=== PATIENT | male | born 1990 | race Caucasian/White ===

== ENCOUNTER 2020-03-14 11:50 | Emergency (ER) | payer OTHER ==
[2020-03-14 11:54] VITALS: BP 116/70; PULSE 59; TEMP 97.4; BMI 31.1
[2020-03-14] MEDS ORDERED: CEPHALEXIN MONOHYDRATE 500 MG CAPSULE (UD) PO ONE (12:39)
[2020-03-14] MEDS ORDERED: DIPHTH,PERTUSS(ACELL),TET 0.5 ML DISP.SYRIN IM ONE ×2 (12:39→12:43)
[2020-03-14] MEDS ORDERED: IBUPROFEN 600 MG TABLET (FP) PO ONE ×2 (12:39→12:43)
[2020-03-14] MEDS ORDERED: CEPHALEXIN MONOHYDRATE 500 MG CAPSULE (UD) ONE (12:43)
--- NOTE | 2020-03-14 12:47 | PDOC ---
History of Present Illness - General Chief Complaint: Puncture Wound Stated Complaint: WOUND L FOOT Time Seen by Provider: 03/14/20 12:00 History Source: Patient Exam Limitations: No Limitations - History of Present Illness Initial Comments: 03/14/20 12:45 Patient is a 29-year-old male who presents to the ED with complaint of left foot pain and swelling after a nail fell onto the dorsum of his foot yesterday. The nail punctured his left foot and required him to pull it out on his own. He states the foot has become more swollen and more painful since. Is unknown when his last tetanus booster was. He denies any fevers or chills. He denies any drainage from the area. He has not taken anything for his symptoms. He denies any past medical history or allergies to medications. Past History - Medical History Allergies/Adverse Reactions: Allergies Allergy/AdvReac Type Severity Reaction Status Date / Time No Known Allergies Allergy Verified 03/14/20 11:54 Home Medications: Ambulatory Orders Cephalexin [Keflex] 500 mg PO TID #21 capsule 03/14/20 Ibuprofen [Motrin -] 600 mg PO TID PRN #21 tablet 03/14/20 COPD: No Other medical history: DENIES - Psycho-Social/Smoking History Smoking History: Never smoked Have you smoked in the past 12 months: No Information on smoking cessation initiated: No - Substance Abuse Hx (Audit-C & DAST Scrn) How often the patient has a drink containing alcohol: Never Score: In Men: 4 or > Positive; In Women: 3 or > Positive: 0 Screen Result (Pos requires Nsg. Audit-10AR): Negative In the last yr the pt used illegal drug/Rx for NonMed reason: No Score: Yes response is considered Positive: 0 Screen Result (Positive result requires Nsg. DAST-10): Negative Review of Systems - Review of Systems Comments:: 03/14/20 12:45 - Review of Systems Able to Perform ROS?: Yes Constitutional: No: Fever, Chills, Loss of Appetite, Night Sweats, Weakness HEENTM: No: Eye Pain, Vision changes, Ear Pain, Throat Pain, Throat Swelling, Mouth Pain, Difficulty Swallowing Respiratory: No: Cough, Shortness of Breath, Wheezing, Sputum Production Cardiac (ROS): No: Chest Pain, Chest Tightness, Palpitations, Irregular Heart Beat, Edema ABD/GI: No: Nausea, Vomiting, Abdominal Pain, Diarrhea : No Dysuria, No Hematuria, No Frequency, No Urgency Musculoskeletal: No: Muscle Pain, Back Pain, Joint Pain, Muscle Weakness, Neck Pain; positive: Puncture wound left foot Integumentary: No: Lesions, Rash Neurological: No: Headache, Numbness, Tingling, Weakness, Speech Difficulties *Physical Exam - Vital Signs Last Vital Signs Temp Pulse Resp BP Pulse Ox 97.4 F L 59 L 18 116/70 98 03/14/20 11:51 03/14/20 11:51 03/14/20 11:51 03/14/20 11:51 03/14/20 11:51 - Physical Exam 03/14/20 12:46 - Physical Exam General Appearance: Nourished, Appropriately Dressed, No Distress HEENT: EOMI, Normal Voice, Hearing Grossly Normal Neck: Supple, No Lymphadenopathy (R), No Lymphadenopathy (L), No Rigidity, No Decreased range of motion Respiratory/Chest: Lungs Clear, Normal Breath Sounds. No Respiratory Distress, No Accessory Muscle Use Cardiovascular: Regular Rhythm, Regular Rate, S1, S2 Musculoskeletal: Normal Inspection. No Decreased Range of Motion Extremity: Normal Capillary Refill, Normal Inspection; left dorsum foot on the medial aspect just distal to the ankle with a puncture wound with central scabbing appreciated. Moderate surrounding swelling and tenderness to palpation. No drainage. No erythema. No significant warmth to touch. No fluctuance. DP and PT pulses palpable. Sensation intact distally. Brisk capillary refill distally. Integumentary: Normal Color, Dry. No Rash Neurologic: financial systems analyst II-XII NML intact, Fully Oriented, Alert, Normal Mood/Affect, Normal Response ED Treatment Course - RADIOLOGY Radiology Studies Ordered: Category Date Time Status FOOT-LEFT [RAD] Stat Radiology 03/14/20 12:39 Ordered - Medications Given in the ED: ED Medications Discontinued Medications Generic Name Dose Route Start Last Admin Trade Name Freq PRN Reason Stop Dose Admin Cephalexin HCl 500 mg 03/14/20 12:39 03/14/20 12:44 Keflex - PO 03/14/20 12:40 500 mg ONCE ONE Administration Ibuprofen 600 mg 03/14/20 12:39 03/14/20 12:44 Motrin - PO 03/14/20 12:40 600 mg ONCE ONE Administration Medical Decision Making - Medical Decision Making 03/14/20 12:47 Assessment: Patient is a 29-year-old male with a puncture wound to the left foot from a nail yesterday. Plan: -Boostrix ordered -Keflex p.o. 1 dose given in the ED -Motrin p.o. given in the ED -Left foot x-ray ordered -Will reassess 03/14/20 13:01 The patient has been made aware that the radiologist read the x-ray as no acute fracture and no foreign body. We will place the patient on Keflex p.o. as well as send Motrin to his pharmacy. He should ice and elevate the foot. He should follow-up with orthopedics, referral given. He understands and agrees with this treatment plan and he is stable for discharge. Discharge - Discharge Information Problems reviewed: Yes Clinical Impression/Diagnosis: Puncture wound of left foot Qualifiers: Encounter type: initial encounter Qualified Code(s): S91.332A - Puncture wound without foreign body, left foot, initial encounter Condition: Stable Disposition: HOME - Additional Discharge Information Prescriptions: Cephalexin [Keflex] 500 mg PO TID #21 capsule Ibuprofen [Motrin -] 600 mg PO TID PRN #21 tablet PRN Reason: Pain - Follow up/Referral Referrals: Yovany Rivera DO [Staff Physician] - - Patient Discharge Instructions Patient Printed Discharge Instructions: DI for Puncture Wound, DI for Cellulitis -- Adult Additional Instructions: Keep the area clean and dry. Take the antibiotics as prescribed and complete the entire course even if you are feeling better. Take the Motrin as needed for pain. Ice and elevate your foot to help with swelling and pain. Follow-up with orthopedics within 2 to 3 days for repeat evaluation. You have been referred to the orthopedist in the name is enclosed. Return to the emergency department for high fevers, shaking chills, profuse vomiting, pus from the wound, increased redness and pain, or any other worsening symptoms. Mantenga el leobardo limpia y seca. [place] los antibiticos segn lo prescrito y complete todo el ciclo incluso si se siente mejor. [place] Motrin segn sea necesario para el dolor. Hielo y levante el pie para ayudar con la hinchazn y el dolor. Seguimiento con ortopedia dentro de 2 a 3 prakash para repetir la evaluacin. [place] sido referido al ortopedista en el nombre que se adjunta. Regrese a la ela de emergencias si tiene fiebre blossom, escalofros, vmitos profusos, pus de la herida, aumento del enrojecimiento y dolor, o cualquier otro sntoma que empeore. Print Language: EGYPTIAN - Post Discharge Activity Work/Back to School Note: Back to Work
== END 2020-03-14 13:17 | disposition home or self-care (01) ==
LOC: JERFT 11:50
PROC: 3E0234Z Introduction of Serum, Toxoid and Vaccine into Muscle, Percutaneous Approach (ICD-10-PCS; principal; 2020-03-14)
DX: S91.332A Puncture wound without foreign body, left foot, initial encounter (principal)
CPT/HCPCS: 73630-TC-LT; 90715; 99284-25